=== PATIENT | male | born 2000 | race Caucasian/White ===

== ENCOUNTER 2023-08-18 11:16 | Emergency (ER) | payer SELFPAY ==
--- NOTE | ~2023-08-18 | XR_ITS ---
XR hand RT min 3V DATE: 08/18/2023 11:57 INDICATION: Pain, swelling, laceration at third knuckle TECHNIQUE: 3 views COMPARISON: None FINDINGS: Dorsal soft tissue swelling over the ma carpophalangeal areas noted. No subcutaneous emphys jeremías or radiopaque foreign body is evident. No fracture, dislocation, periosteal reaction or bone destruction, joint space narrowing, erosive jacy nge or chondrocalcinosis. IMPRESSION: Dorsal metacarpophalangeal area of soft tissue swelling; no bony abnormality Reviewed, dictated and finalized at location A. IMPRESSION: Dorsal metacarpophalangeal area of soft tissue swelling; no bony ab normality
[2023-08-18 11:21] VITALS: BP 143/86; PULSE 67; RESP 16; TEMP 36.6; O2SAT 97
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
== END 2023-08-18 13:23 | disposition home or self-care (01) ==
PROVIDERS: Emergency Provider Physician Assistant
DX: S60.221A Contusion of right hand, initial encounter (principal); W22.09XA Striking against other stationary object, initial encounter
CPT/HCPCS: 73130; 99283